=== PATIENT | female | born 2000 | race Hispanic/Latino ===

== ENCOUNTER 2023-01-21 11:59 | Inpatient (IN) | payer BC ==
[2023-01-27] MEDS ORDERED: Ondansetron PF 4 MG/2 ML Vial IVP PRN ×3 (05:58→21:52)
[2023-01-27] MEDS ORDERED: Promethazine HCl 25 MG/ML VIAL IM PRN ×2 (05:58→14:23)
[2023-01-27] MEDS ORDERED: Lidocaine 1% (PF) 30 ML VIAL SC PRN (05:58)
[2023-01-27] MEDS ORDERED: Lactated Ringer's 1,000 ML IV SCH (05:58)
[2023-01-27] MEDS ORDERED: fentaNYL 50 mcg/mL 1 mL Vial SLOW IVP PRN (05:58)
[2023-01-27] MEDS ORDERED: Oxytocin 30 units/NS 500 ML 500 ML IV SCH ×3 (05:58→22:00)
[2023-01-27] MEDS ORDERED: Misoprostol 100 MCG TAB VAG SCH ×2 (05:58)
[2023-01-27] MEDS ORDERED: Ibuprofen 800 MG TAB PO PRN (05:58)
[2023-01-27] MEDS ORDERED: hydrALAZINE 20 MG/ML VIAL SLOW IVP PRN ×2 (05:58→21:52)
[2023-01-27] MEDS ORDERED: HYDROcodone/Acetaminophen 5/325 mg Tablet PO PRN ×4 (05:58→21:52)
[2023-01-27 07:19] LABS: Hematocrit 38.6 % (34.9-44.5); Mean Corpuscular HGB CONC 33.7 g/dL (32.0-36.0); Mean Corpuscular Hemoglobin 28.1 pg (27.0-33.0); Mean Corpuscular Volume 83.5 fl (81.6-98.3); Mean Platelet Volume 9.8 fl (7.4-10.4); Platelet Count 267 10x3/uL (150-450); RBC Distribution Width 17.4 % (11.5-14.5); Red Blood Cell (RBC) Count 4.62 10x6/uL (3.90-5.03); White Blood Cell (WBC) Count 9.6 10x3/uL (3.5-10.5)
[2023-01-27] MEDS ORDERED: Bupivacaine 0.25% HCL 30 ML VIAL ONE (08:00)
[2023-01-27 08:08] LABS: HBSAg Index 0.16 S/CO (0-0.99); Hep B Surf Ag - L&D Non-Reactive S/CO (NonReactive)
[2023-01-27 08:09] LABS: Syphilis Antibody Nonreactive (Nonreactive); Syphilis Antibody Index 0.05 S/CO (<1.00 Non-Reactive)
[2023-01-27] MEDS ORDERED: Penicillin G Potassium 5 MILL.UNITS in Sodium Chloride 0.9% 100 ML IVPB SCH (10:15)
[2023-01-27] MEDS ORDERED: fentaNYL/Ropivacaine Epidural 100 ML ONE (13:42)
[2023-01-27] MEDS ORDERED: Penicillin G 2.5 MILL.units 2.5 MILL.UNITS in Premix 1 BAG IVPB SCH (14:15)
[2023-01-27] MEDS ORDERED: Acetaminophen 325 MG TAB PO PRN (14:23)
[2023-01-27] MEDS ORDERED: Naloxone HCl 0.4 mg/ml Vial IVP PRN ×2 (14:23)
[2023-01-27] MEDS ORDERED: Moisturizing Cream (Eucerin) 113 GM JAR TOP PRN (14:23)
[2023-01-27] MEDS ORDERED: ePHEDrine Sulfate 50 MG/10 ML VIAL SLOW IVP PRN (14:23)
[2023-01-27] MEDS ORDERED: diphenhydrAMINE 50 MG/ML VIAL IVP PRN (14:23)
[2023-01-27] MEDS ORDERED: Lactated Ringer's 500 ML IV PRN (14:23)
[2023-01-27] MEDS ORDERED: Communication Order-Pharmacy FS SCH (14:30)
[2023-01-27] MEDS ORDERED: fentaNYL 2 mcg/Ropivacaine 0.2% Epidural 100 ML CADD EPIDURAL SCH (14:30)
[2023-01-27] MEDS ORDERED: Tranexamic Acid 1,000 MG/10 ML VIAL ONE (18:21)
[2023-01-27] MEDS: Misoprostol 200 MCG TAB ONE ×2 (18:25→18:42)
[2023-01-27] MEDS ORDERED: Lanolin Ointment 7 GM TUBE TOP PRN (21:52)
[2023-01-27] MEDS ORDERED: Bisacodyl 10 MG SUPP PR PRN (21:52)
[2023-01-27] MEDS ORDERED: Milk Of Magnesia 30 ML UDCUP PO PRN (21:52)
[2023-01-27] MEDS ORDERED: Preparation H Ointment 28 GM TUBE PR PRN (21:52)
[2023-01-27] MEDS ORDERED: Benzocaine-Menthol 82.5 ML CAN TOP PRN (21:52)
[2023-01-27] MEDS ORDERED: diphenhydrAMINE 25 MG CAP PO PRN (21:52)
[2023-01-27] MEDS ORDERED: Boostrix 0.5 ML (Tdap) VIAL (>/=7 yrs of age) IM ONE (21:52)
[2023-01-27 21:57] VITALS: BMI 29.2
[2023-01-27] MEDS ORDERED: Docusate 100 MG CAP PO SCH (22:15)
[2023-01-27] MEDS: Ibuprofen 800 MG TAB PO SCH (22:33)
[2023-01-28] MEDS: Ibuprofen 800 MG TAB PO SCH ×3 (05:46→22:19)
[2023-01-28] MEDS: Ferrous Sulfate 325 MG TAB PO SCH ×2 (09:17→18:31)
[2023-01-28] MEDS: Docusate 100 MG CAP PO SCH ×2 (09:18→22:19)
[2023-01-29] MEDS: Ibuprofen 800 MG TAB PO SCH (06:18)
[2023-01-29 07:48] VITALS: BP 116/72; TEMP 97.7
[2023-01-29] MEDS: Ferrous Sulfate 325 MG TAB PO SCH (09:42)
[2023-01-29] MEDS: Docusate 100 MG CAP PO SCH (09:42)
== END 2023-01-29 12:15 | disposition home or self-care (01) | DRG 807 ==
LOC: CSHLD 01-27 05:26 → CSHPP 01-27 21:05
PROVIDERS: ADMIT Obstetrics & Gynecology; ATTEND Obstetrics & Gynecology
PROC: 10E0XZZ Delivery of Products of Conception, External Approach (ICD-10-PCS; principal; 2023-01-27)
PROC: 0UQMXZZ Repair Vulva, External Approach (ICD-10-PCS; 2023-01-27)
PROC: 0KQM0ZZ Repair Perineum Muscle, Open Approach (ICD-10-PCS; 2023-01-27)
PROC: 3E0P7VZ Introduction of Hormone into Female Reproductive, Via Natural or Artificial Opening (ICD-10-PCS; 2023-01-27)
DX: O99.824 Streptococcus B carrier state complicating childbirth (principal); Z37.0 Single live birth; O70.1 Second degree perineal laceration during delivery; O70.0 First degree perineal laceration during delivery; Z3A.40 40 weeks gestation of pregnancy
CPT/HCPCS: 85027; 86780; 86850; 86900; 86901; 87340; J2540; J2590; J3490; J7120; S0020